=== PATIENT | male | born 1960 | race Caucasian/White ===

== ENCOUNTER 2018-06-14 12:23 | Emergency (ER) | payer MEDICAID, OTHER ==
[~2018-06-14] VITALS: Ht 167.6 cm; Wt 70.3 kg
[2018-06-14 12:23] VITALS: BP 134/85
--- NOTE | 2018-06-14 16:22 | NUR ---
Social service consult requested by Dr. Dunn for homeless resources. Pt. is a 57 year old male who came to [facility] for generalized weakness. SW met with pt. bedside. Pt. is alert and oriented x 4. Pt. was cooperative with SW. Pt. states he has been homeless for the past 10 years. Pt. currently is receiving food stamps. Pt. states [place] the [place] by the [facility] on [address]. Pt. states he would like to go back there upon discharge and would need a bus token. ILDA gave pt. list of homeless correction resources and food resources. Pt. states he smokes pot daily and smokes 5 to 6 cigarettes per day. Pt. states he drinks alcohol (beer) once in a while. Pt. denies doing drugs at this time stating he used to in the past. ILDA gave pt. list of homeless correction resources and food resources that pt. accepted. ILDA informed pt's [employer] regarding pt. needing bus token / $2 to get to [place] via bus. ILDA also updated Dr. Dunn regarding pt's discharge plan and resources given.
== END 2018-06-14 16:34 | disposition home or self-care (01) ==
LOC: ER 12:26
DX: T73.0XXA Starvation, initial encounter (principal); R53.1 Weakness; Z59.0 Homelessness; F32.9 Major depressive disorder, single episode, unspecified; F10.10 Alcohol abuse, uncomplicated; F17.200 Nicotine dependence, unspecified, uncomplicated; Y90.9 Presence of alcohol in blood, level not specified; X58.XXXA Exposure to other specified factors, initial encounter; Y93.89 Activity, other specified; Y92.89 Other specified places as the place of occurrence of the external cause; Y99.8 Other external cause status; Z86.19 Personal history of other infectious and parasitic diseases
CPT/HCPCS: 99283; A4606; Z7610

== ENCOUNTER 2018-09-06 14:49 | Emergency (ER) | payer MEDICAID, OTHER ==
--- NOTE | 2018-09-06 15:25 | NUR ---
CALLED TO TRIAGE,NO ANSWER
--- NOTE | 2018-09-06 15:40 | NUR ---
CALLED TO TRIAGE,NO ANSWER
--- NOTE | 2018-09-06 16:29 | NUR ---
CALLED TO TRIAGE, NO ANSWER
== END 2018-09-06 16:30 | disposition left against medical advice (07) ==
LOC: ER 14:55
DX: Z53.21 Procedure and treatment not carried out due to patient leaving prior to being seen by health care provider (principal)

== ENCOUNTER 2019-02-07 11:12 | Emergency (ER) | payer OTHER, MEDICAID ==
[~2019-02-07] VITALS: Ht 177.8 cm; Wt 59.0 kg
[2019-02-07] MEDS ORDERED: LORAZEPAM INJ 2 MG/ML VIAL ONE (11:21)
[2019-02-07] MEDS ORDERED: DIVALPROEX SODIUM 500 MG TABLET.DR PO ONE ×2 (11:21→11:30)
[2019-02-07] MEDS ORDERED: LORAZEPAM INJ 2 MG/ML VIAL IVP ONE (11:30)
[2019-02-07 11:32] LABS: BASOPHILS % (AUTO) 0.3 % (0.0-2.0); EOSINOPHILS % (AUTO) 0.2 % (0.0-6.0); HEMATOCRIT 52 % (39-51); HEMOGLOBIN 16.9 g/dL (13.5-17.5); LYMPHOCYTES # (AUTO) 1.5 /CMM (0.8-4.8); LYMPHOCYTES % (AUTO) 21.5 % (20.0-44.0); MEAN CORPUSCULAR HGB CONC 33 g/dl (31.0-36.0); MEAN CORPUSCULAR VOLUME 96 fL (80-96); MONOCYTES # (AUTO) 0.5 /CMM (0.1-1.30); MONOCYTES % (AUTO) 7.4 % (2.0-12.0); NEUTROPHILS # (AUTO) 4.9 /CMM (1.8-8.9); NEUTROPHILS % (AUTO) 70.6 % (43.0-81.0); PLATELET COUNT (AUTO) 218 /CMM (150-450); RED BLOOD CELL COUNT(AUTO) 5.37 MIL/uL (4.5-6.0)
[2019-02-07 11:36] LABS: CALCIUM, SERUM 9.6 mg/dL (8.5-10.1); CREATININE 0.8 mg/dL (0.6-1.3); POTASSIUM 4.4 mmol/L (3.5-5.1)
--- NOTE | 2019-02-07 11:41 | NUR ---
Witnessed seizure - from the long term; requiring clearance for custody non-compliant with PO Depakote. PT AAOX4, VSS. DENIES ANDERSON, DIZZINESS, N/V, WEAKNESS OR ANY OTHER DISCOMFORT. PT SEEN & EVAL'D BY DR. LANZA. PLACED ON COKEMAN. YONG RAILS PADDED FOR SAFETY. MEDICATED PER ERMD ORDER. WILL CONT TO MONITOR. CARRIE RAMSEY @ BS.
--- NOTE | 2019-02-07 11:57 | NUR ---
PT SITTING UP, AAOX4, VSS, NAD NOTED @ THIS TIME & WILL CONT TO MONITOR.
--- NOTE | 2019-02-07 13:20 | NUR ---
Patient discharged to home in stable condition. Written and verbal after care instructions given. Patient verbalizes understanding of instruction. IV removed. Catheter intact and site benign. Pressure and 4x4 applied to site. No bleeding noted.
[2019-02-07 13:24] VITALS: BP 130/78
== END 2019-02-07 13:26 ==
LOC: ER 11:16
DX: R56.9 Unspecified convulsions (principal); F32.9 Major depressive disorder, single episode, unspecified; F17.200 Nicotine dependence, unspecified, uncomplicated; Z86.19 Personal history of other infectious and parasitic diseases; Z59.0 Homelessness
CPT/HCPCS: 36415; 80048; 85025; 96374; 99283; A4606; J2060

== ENCOUNTER 2019-04-30 09:02 | Emergency (ER) | payer MEDICAID, OTHER ==
[~2019-04-30] VITALS: Ht 177.8 cm; Wt 63.0 kg
--- NOTE | 2019-04-30 09:09 | NUR ---
CALLED IN THE WAITING ROOM, PATIENT IS NOT AROUND
[2019-04-30 09:37] VITALS: BP 96/72
[2019-04-30] MEDS ORDERED: CEPHALEXIN MONOHYDRATE 500 MG CAPSULE PO ONE (09:57)
[2019-04-30] MEDS ORDERED: SULFAMETH/TRIMETH 800/160 MG 1 UDTAB TABLET PO ONE (09:57)
[2019-04-30] MEDS: CEPHALEXIN MONOHYDRATE 500 MG CAPSULE PO ONE (10:00)
[2019-04-30] MEDS: SULFAMETH/TRIMETH 800/160 MG 1 UDTAB TABLET PO ONE (10:00)
== END 2019-04-30 10:06 | disposition home or self-care (01) ==
LOC: ER 09:07
DX: L03.113 Cellulitis of right upper limb (principal); F19.10 Other psychoactive substance abuse, uncomplicated; F32.9 Major depressive disorder, single episode, unspecified; F17.200 Nicotine dependence, unspecified, uncomplicated; Z86.19 Personal history of other infectious and parasitic diseases; Z59.0 Homelessness

== ENCOUNTER 2021-02-24 12:36 | Emergency (ER) | payer OTHER ==
[~2021-02-24] VITALS: Ht 177.8 cm; Wt 74.8 kg
--- NOTE | 2021-02-24 12:57 | NUR ---
BIBRA TO ERBED 13. AAOX4. NOT IN RESP DISTRESS. AMBULATORY. BROUGHT IN FOR OVERDOSE ON FENTANYL. PT REPORTS THAT HE SMOKE FENTANYL. PT HAD TO BE GIVEN NARCAN TO REGAINE CONSCIOUSNESS. PT SATTING WELL. PT DENIES SI NOR HI. WAS AT THE BEDSIDE FOR EVAL.
[2021-02-24] MEDS ORDERED: IV NS 0.9% 1,000 ML BAG IV ONE (13:30)
[2021-02-24 13:41] LABS: BASOPHILS # (AUTO) 0.1 /CMM (0.0-0.2); BASOPHILS % (AUTO) 0.6 % (0.0-2.0); EOSINOPHILS % (AUTO) 0.5 % (0.0-6.0); HEMATOCRIT 43 % (39-51); HEMOGLOBIN 14.6 g/dL (13.5-17.5); LYMPHOCYTES # (AUTO) 1.4 /CMM (0.8-4.8); MEAN CORPUSCULAR HGB CONC 34 g/dl (31.0-36.0); MEAN CORPUSCULAR VOLUME 95 fL (80-96); MONOCYTES # (AUTO) 0.6 /CMM (0.1-1.30); MONOCYTES % (AUTO) 7.2 % (2.0-12.0); NEUTROPHILS # (AUTO) 5.9 /CMM (1.8-8.9); NEUTROPHILS % (AUTO) 74.7 % (43.0-81.0); PLATELET COUNT (AUTO) 251 /CMM (150-450); RED BLOOD CELL COUNT(AUTO) 4.51 MIL/uL (4.5-6.0)
[2021-02-24 13:50] LABS: CALCIUM, SERUM 8.2 mg/dL (8.5-10.1); CARBON DIOXIDE 28 mmol/L (21-32); CHLORIDE 102 mmol/L (98-107); CREATININE 0.9 mg/dL (0.6-1.3); GLUCOSE 100 mg/dL (74-106); POTASSIUM 4.1 mmol/L (3.5-5.1); SODIUM SERUM 138 mmol/L (136-145); UREA NITROGEN, BLOOD 17 mg/dL (7-18)
[2021-02-24 13:55] LABS: ALANINE AMINOTRANSFERASE 17 U/L (12-78); ALBUMIN 3.7 g/dL (3.4-5.0); ALCOHOL, BLOOD < 3 mg/dL (0-0); ALKALINE PHOSPHATASE 59 U/L (46-116); ASPARTATE AMINOTRANSFERASE 21 U/L (15-37); BILIRUBIN,DIRECT 0.1 mg/dL (0.0-0.2); BILIRUBIN,TOTAL 0.4 mg/dL (0.2-1.0); TOTAL PROTEIN, SERUM 7.1 g/dL (6.4-8.2)
[2021-02-24 13:56] LABS: ACETAMINOPHEN 0 ug/ml (10-30)
[2021-02-24] MEDS ORDERED: NALO4SPR NS (14:39)
--- NOTE | 2021-02-24 14:45 | NUR ---
IV removed. Catheter intact and site benign. Pressure and 4x4 applied to site. No bleeding noted.
--- NOTE | 2021-02-24 14:46 | NUR ---
Patient given written and verbal discharge instructions. Patient verbalizes understanding of instructions. Patient is ambulatory with steady gait. Refuses offer of [facility]ci placement. Patient given list of available shelters in surrounding area.
--- NOTE | 2021-02-24 14:53 | NUR ---
homeless waiver signed by the pt
[2021-02-24 14:55] VITALS: BP 132/89
== END 2021-02-24 14:55 | disposition home or self-care (01) ==
LOC: ER 12:44
DX: T40.2X1A Poisoning by other opioids, accidental (unintentional), initial encounter (principal); G40.909 Epilepsy, unspecified, not intractable, without status epilepticus; F32.9 Major depressive disorder, single episode, unspecified; F10.10 Alcohol abuse, uncomplicated; F17.200 Nicotine dependence, unspecified, uncomplicated; Y90.0 Blood alcohol level of less than 20 mg/100 ml; Z86.19 Personal history of other infectious and parasitic diseases; Z59.0 Homelessness; Z79.899 Other long term (current) drug therapy; Y92.89 Other specified places as the place of occurrence of the external cause
CPT/HCPCS: 36415; 80048; 80076; 80299; 80320; 85025; 96360; 99283; J7030; G0480